=== PATIENT | male | born 1990 | race Caucasian/White ===

== ENCOUNTER 2020-12-15 03:27 | Emergency (ER) | payer SELFPAY ==
[2020-12-15 03:31] VITALS: BP 138/85; PULSE 113; RESP 20; TEMP 36.6; O2SAT 99
--- NOTE | 2020-12-15 04:16 | ED.GENADULT ---
HPI - General Adult General Chief complaint: Dental/Oral Stated complaint: Roof of mouth swollen Time Seen by Provider: 12/15/20 04:01 History of Present Illness HPI narrative: Patient 30-year-old gentleman who presents the emergency department with chief complaint of sinus infection. Patient states that for several days he has been having significant purulent drainage out of the right nostril patient states he has pain and tenderness in the right maxillary sinus area noticed that he had swelling in the right upper portion of his soft palate. The patient reports that he has started taking some p.o. Cipro and has had partial improvement but has not completely improved. Related Data Allergies Allergy/AdvReac Type Severity Reaction Status Date / Time Penicillins Allergy Unknown Unverified 04/18/18 14:05 Review of Systems Review of Systems: Narrative: A 10 system review of systems was completed on the patient and is negative except for what is stated in the HPI. Nursing and ancillary documentation was reviewed. PMFSH Social History Social History Gender identity (if verbalized by the patient): Male Exam Narrative: Exam Narrative: GENERAL: Well-appearing, well-nourished, and in no acute distress. HEAD: Normocephalic, atraumatic. EYES: PERRLA and EOMI. ENT: Nares clear, no rhinorrhea or epistaxis. Mucous membranes moist. There is tenderness to palpation in the right maxillary sinus there is purulent drainage out of the right nostril NECK: Supple. CHEST: Clear to auscultation. No respiratory distress. HEART: Regular rate and rhythm. No murmur heard. Normal peripheral pulses. ABDOMEN: Soft, nontender, nondistended, normal active bowel sounds. EXTREMITIES: Normal range of motion. No edema. SKIN: Warm, dry, no rash. NEURO: No focal deficits. Alert and oriented x3. PSYCH: Normal mood and affect. Course Vital Signs Vital signs: Vital Signs Temperature 36.6 C 12/15/20 03:31 Pulse Rate 113 H 12/15/20 03:31 Respiratory Rate 20 12/15/20 03:31 Blood Pressure 138/85 12/15/20 03:31 Pulse Oximetry 99 12/15/20 03:31 Temperature 36.6 C 12/15/20 03:31 Pulse Rate 113 H 12/15/20 03:31 Respiratory Rate 20 12/15/20 03:31 Blood Pressure 138/85 12/15/20 03:31 Pulse Oximetry 99 12/15/20 03:31 Medical Decision Making Vital Signs Vital Signs: Vital Signs Temperature 36.6 C 12/15/20 03:31 Pulse Rate 113 H 12/15/20 03:31 Respiratory Rate 20 12/15/20 03:31 Blood Pressure 138/85 12/15/20 03:31 Pulse Oximetry 99 12/15/20 03:31 Temperature 36.6 C 12/15/20 03:31 Pulse Rate 113 H 12/15/20 03:31 Respiratory Rate 20 12/15/20 03:31 Blood Pressure 138/85 12/15/20 03:31 Pulse Oximetry 99 12/15/20 03:31 Discharge Plan Discharge Clinical Impression: Acute bacterial sinusitis Patient Disposition: Home, Self-Care Condition: Stable Instructions: Antibiotic Form, Sinusitis (ED) Prescriptions: New methylprednisolone [Medrol (Rafael)] 4 mg tablets,dose pack See Rx Instructions .ROUTE .COMPLEX Qty: 21 RF: 0 clindamycin HCl 300 mg capsule 300 mg PO Q6H 10 Days Qty: 40 RF: 0 Follow-up/Referrals: PHYSICIAN,FORK REPAIRER [Primary Care Provider] - Shandra Saavedra DO [Physician] - Time of Disposition: :
[2020-12-15] MEDS: CLINDAMYCIN HCL 150 MG CAP 300 MG PO (04:27)
[2020-12-15] MEDS: predniSONE 20 MG TABLET 60 MG PO (04:28)
[2020-12-15 04:34] VITALS: BP 130/80; PULSE 89; RESP 18; O2SAT 98
== END 2020-12-15 04:41 | disposition home or self-care (01) ==
PROVIDERS: Emergency Provider Emergency Medicine
DX: J01.90 Acute sinusitis, unspecified (principal); B96.89 Other specified bacterial agents as the cause of diseases classified elsewhere
CPT/HCPCS: 99283; A9270; J7512